=== PATIENT | female | born 1965 | race African-American/Black ===

== ENCOUNTER 2021-11-13 15:30 | Emergency (ER) | payer OTHER, MEDICARE, MEDICAID ==
[~2021-11-13] VITALS: Ht 154.9 cm; Wt 64.0 kg
[2021-11-13 15:44] VITALS: BP 165/102
[2021-11-13] MEDS ORDERED: LIDOCAINE HCL/PF 1% 10 MG/ML 5ML VIAL INFIL ONE (18:00)
[2021-11-13] MEDS ORDERED: IBUPROFEN 600MG TABLET PO ONE (19:30)
[2021-11-13] MEDS ORDERED: LIDOCAINE HCL/PF 1% 10 MG/ML 5ML VIAL INFIL NR (19:45)
[2021-11-13] MEDS ORDERED: IBUP-2029 MT (20:25)
== END 2021-11-13 20:47 | disposition home or self-care (01) ==
LOC: ER 15:30
DX: S63.286A Dislocation of proximal interphalangeal joint of right little finger, initial encounter (principal); I10 Essential (primary) hypertension; W01.0XXA Fall on same level from slipping, tripping and stumbling without subsequent striking against object, initial encounter; Y93.89 Activity, other specified; Y92.018 Other place in single-family (private) house as the place of occurrence of the external cause
CPT/HCPCS: 26770; 73140; 99284; J3490